=== PATIENT | female | born 1965 | race Caucasian/White ===

== ENCOUNTER 2024-10-22 08:04 | Outpatient (CLI) | payer BC ==
[2024-10-22 09:22] LABS: #Basophils 0.03 10x3/uL (0.0-0.2); #Eosinophils 0.13 10x3/uL (0.0-0.5); #Monocytes 0.68 10x3/uL (0.0-1.1); #Neutrophils 4.30 10x3/uL (1.5-8.4); %Basophils 0.4 % (0.0-2.0); %Eosinophils 1.7 % (0.0-6.0); %Lymphocytes 30.6 % (18.0-47.0); %Monocytes 9.1 % (0.0-10.0); %Neutrophils 57.9 % (40.0-75.0); Hematocrit 40.7 % (34.9-44.5); Hemoglobin 13.1 g/dL (12.0-15.5); Mean Corpuscular Hemoglobin 29.0 pg (27.0-33.0); Mean Corpuscular Volume 90.2 fL (81.6-98.3); Platelet Count 234 10x3/uL (150-450); Red Blood Cell (RBC) Count 4.51 10x6/uL (3.90-5.03); White Blood Cell (WBC) Count 7.44 10x3/uL (3.5-10.5)
[2024-10-22 09:36] LABS: Anion Gap 17 mmol/L (10-20); BUN (Urea Nitrogen) 13 mg/dL (9.8-20.1); Calc. Creatinine Clearance 0 mL/min (70-130); Calcium 9.3 mg/dL (7.8-10.44); Carbon Dioxide 25 mmol/L (23-31); Chloride 105 mmol/L (98-107); Glucose 100 mg/dL (80-115); Potassium 3.0 mmol/L (3.5-5.1); Sodium 144 mmol/L (136-145)
== END 2024-10-22 08:05 | disposition home or self-care (01) ==
LOC: CSHLAB 08:04
PROVIDERS: ATTEND Surgery
DX: Z01.818 Encounter for other preprocedural examination (principal); N63.10 Unspecified lump in the right breast, unspecified quadrant
CPT/HCPCS: 80048; 85025; 93005; 93010